=== PATIENT | female | born 1935 | race Two or more races ===

== ENCOUNTER 2018-03-14 11:00 | Outpatient (CLI) | payer OTHER ==
[~2018-03-14] VITALS: Ht 165.1 cm; Wt 52.6 kg
== END 2018-03-14 11:15 | disposition home or self-care (01) ==
LOC: OFIC 805 11:00
DX: J39.2 Other diseases of pharynx (principal); R13.19 Other dysphagia; K21.9 Gastro-esophageal reflux disease without esophagitis

== ENCOUNTER 2019-01-12 09:03 | Outpatient (CLI) | payer OTHER ==
[~2019-01-12] VITALS: Ht 152.4 cm; Wt 52.6 kg
== END 2019-01-12 09:20 | disposition home or self-care (01) ==
LOC: OFIC 805 09:03
DX: K21.0 Gastro-esophageal reflux disease with esophagitis (principal); R13.19 Other dysphagia; R68.89 Other general symptoms and signs

== ENCOUNTER → 2020-03-20 | Outpatient (CLI) | payer OTHER ==
[~2020-03-20] MED LIST: ADULT LOW DOSE81 M1 PO; ATORVASTATIN CA10 MG PO; CARAFATE1 GM/10 ML PO; LEVSIN/SL0.125 MG PO; LIPITOR20 MG PO; NITROGLYCERIN0.4 MG SL; PROTONIX40 MG PO; TOPROL XL25 M1 PO
== END | disposition home or self-care (01) ==
LOC: TOM 09:48
PROVIDERS: ATTEND Internal Medicine
DX: R10.84 Generalized abdominal pain (principal)

== ENCOUNTER 2020-03-27 16:57 | Emergency (ER) | payer OTHER ==
[~2020-03-27] VITALS: Ht 165.1 cm; Wt 47.6 kg
[2020-03-27] MEDS ORDERED: NITROGLYCERIN0.4 MG SL (17:12)
[2020-03-27] MEDS ORDERED: ATORVASTATIN CA10 MG PO (17:12)
[2020-03-27] MEDS ORDERED: ADULT LOW DOSE81 M1 PO (17:12)
[2020-03-27] MEDS ORDERED: TOPROL XL25 M1 PO (17:13)
[2020-03-27] MEDS ORDERED: LEVSIN/SL0.125 MG PO (17:14)
[2020-03-27] MEDS ORDERED: CARAFATE1 GM/10 ML PO (17:14)
== END 2020-03-27 20:31 | disposition home or self-care (01) ==
LOC: ER 16:57
DX: S70.01XA Contusion of right hip, initial encounter (principal); M54.5 Low back pain; K29.60 Other gastritis without bleeding; M51.37 Other intervertebral disc degeneration, lumbosacral region; W06.XXXA Fall from bed, initial encounter; Y93.89 Activity, other specified; Y92.013 Bedroom of single-family (private) house as the place of occurrence of the external cause; Y99.8 Other external cause status

== ENCOUNTER 2020-04-30 10:39 | Emergency (ER) | payer OTHER ==
[~2020-04-30] VITALS: Ht 165.1 cm; Wt 48.5 kg
[~2020-04-30 10:39] MED LIST changes: -LIPITOR20 MG PO; -PROTONIX40 MG PO
[2020-04-30] MEDS ORDERED: PROTONIX40 MG PO (11:10)
[2020-04-30] MEDS ORDERED: LIPITOR20 MG PO (11:10)
== END 2020-04-30 16:53 | disposition home or self-care (01) ==
LOC: ER 10:39
DX: K29.00 Acute gastritis without bleeding (principal)